=== PATIENT | male | born 1980 | race Caucasian/White ===

== ENCOUNTER 2016-11-13 13:54 | Emergency (ER) | payer MEDICARE, OTHER ==
[2016-11-13 14:49] LABS: HEMOGLOBIN 15.1 gm/dl (14.0-17.5); RED BLOOD COUNT 4.9 M/UL (4.20-5.50); WHITE BLOOD COUNT 11.8 K/UL (4.5-11.0)
[2016-11-13 15:03] LABS: BUN/CREATININE RATIO 20 (0-10)
== END 2016-11-13 19:45 | disposition home or self-care (01) ==
LOC: ER1 13:54
PROVIDERS: Family Medicine
DX: S01.01XA Laceration without foreign body of scalp, initial encounter (principal); R55 Syncope and collapse; R11.0 Nausea; W18.39XA Other fall on same level, initial encounter
CPT/HCPCS: 36415; 70450; 72125; 80053; 85025; 85610; 85730; 93005; 96365; 99284; J0690; J2060; J7050